=== PATIENT | male | born 1970 | race Hispanic/Latino ===

== ENCOUNTER 2020-12-20 10:44 | Emergency (ER) | payer OTHER ==
[2020-12-20] MEDS ORDERED: Boostrix 0.5 ML (Tdap) VIAL ONE (12:26)
[2020-12-20] MEDS ORDERED: Silver Sulfadiazine 50 GM TUBE ONE (12:26)
== END 2020-12-20 12:40 | disposition home or self-care (01) ==
LOC: ERS 10:44
DX: T23.221A Burn of second degree of single right finger (nail) except thumb, initial encounter (principal); X19.XXXA Contact with other heat and hot substances, initial encounter
CPT/HCPCS: 16020; 90715; 99282